=== PATIENT | male | born 1950 | race Caucasian/White ===

== ENCOUNTER → 2022-07-09 | Outpatient (CLI) | payer MEDICARE ==
--- NOTE | 2022-07-09 15:18 | MR ---
MRI CERVICAL SPINE: CLINICAL HISTORY: Neck pain that radiates down arms to hands. Spinal stenosis. TECHNIQUE: Multiplanar, multisequence imaging of the cervical spine is performed without IV contrast. COMPARISON: None. FINDINGS: Sagittal images of the cervical spine show the craniocervical junction to appear within nor mal limits. The cervical and upper thoracic spinal cord is normal in caliber and signal. Slight grad e 1 retrolisthesis C6 on C7 and grade 1 anterolisthesis C7 on T1. The vertebral body heights are nor mal. Mild to moderate disc space narrowing C5-C6 and C6-C7 levels with Modic type II endplate changes Axial images at C2-C3 level shows left-sided uncovertebral facet degenerative change causing moderate left-sided neural foraminal narrowing. Axial images at C3-C4 level shows broad-based left disc protrusion effacing the anterolateral thecal sac with some uncovertebral facet degenerative changes, there is mild left and more moderate right-si ded neural foraminal narrowing. Axial images at C4-C5 level shows uncovertebral facet degenerative changes bilaterally. There is tiny central disc protrusion seen. There is [id number] bilateral neural foraminal narrowing. There is effacement of the anterior thecal sac. Axial images at C5-C6 level shows broad-based disc protrusion along with central disc protrusion comp onent. There is some effacement of the anterior thecal sac. There is mild left and more severe right- sided neural foraminal narrowing. Axial images at C6-C7 level show posterior spur disc complex effacing anterior thecal sac and causing advanced bilateral neural foraminal narrowing. Axial images at C7-T1 level shows spondylosis and uncovertebral facet degenerative change causing mil d bilateral neural foraminal narrowing. IMPRESSION: Multilevel spondylolisthesis and degenerative change in the cervical spine as detailed ab ove.
== END | disposition home or self-care (01) ==
LOC: RADMRIMAIN 12:11
PROVIDERS: ATTEND Internal Medicine
DX: M43.12 Spondylolisthesis, cervical region (principal); M47.22 Other spondylosis with radiculopathy, cervical region; M48.02 Spinal stenosis, cervical region
CPT/HCPCS: 72141

== ENCOUNTER 2022-08-10 10:32 | Day surgery (SDC) | payer MEDICARE ==
[~2022-08-10 10:32] MED LIST: LACTATED RINGERS 1,000 ML IV SCH
[2022-08-10 11:21] VITALS: RESP 16; TEMP 97
[2022-08-10] MEDS ORDERED: PROPOFOL 10 MG/ML 20 ML VIAL IV ONE (11:58)
[2022-08-10] MEDS ORDERED: LIDOCAINE 2% INJ 20 MG/ML (2 ML VIAL) ONE (11:58)
--- NOTE | 2022-08-10 12:12 | P.PCN ---
Date of Procedure: 08/10/22 Procedure(s) Performed: BRIEF HISTORY: Patient is a 71-year-old, pleasant, white male scheduled for an upper endoscopy as a part of evaluation of progressive dysphagia to solids for the last 1 year duration and weight loss of 40 pounds. He has history of esophageal achalasia diagnosed in the and is status post Heller's myotomy. For the ones last 1 year his been having dysphagia to liquids and solids.. PROCEDURE PERFORMED: Esophagogastroduodenoscopy. PREOPERATIVE DIAGNOSIS: Progressive dysphagia to solids for the last 1 year duration, history of esophageal achalasia . IV sedation per anesthesia. PROCEDURE: After informed consent was obtained, the patient was brought into the endoscopy unit. IV sedation was administered by Anesthesia under continuous monitoring. Initially the Olympus GIF-140 video endoscope was inserted into the mouth. Esophagus intubated without any difficulty. It was gradually advanced into the stomach and duodenum and carefully examined. The bulb and the second part of the duodenum appeared normal. The scope at this time was withdrawn to the stomach, adequately insufflated with air, and upon careful examination, mucosa of the antrum, body, cardia and the fundus appeared normal. The scope was then withdrawn into the esophagus. The GE junction was located at 39 cm from the incisors. Linear erosions noted in the distal esophagus consistent with LA grade B reflux esophagitis. The entire length of esophagus appeared dilated with retained liquid and solid. There was no esophageal stricture noted. The patient tolerated the procedure well. IMPRESSION: 1. Dilated esophagus with retained fluid but no evidence of esophageal stricture 2. Linear erosions in the distal esophagus consistent with LA grade B reflux esophagitis. RECOMMENDATIONS: The findings of this examination were discussed with the patient as well as his family. He'll be started on omeprazole 20 mg twice daily and was briefly treated about antireflux measures. He'll be seen in office in 6 weeks.
[2022-08-10 12:27] VITALS: BP 122/69; PULSE 70
== END 2022-08-10 12:54 | disposition home or self-care (01) ==
LOC: ORWHC2ENDO 10:32
PROVIDERS: ATTEND Internal Medicine Gastroenterology
DX: K22.0 Achalasia of cardia (principal); K22.89 Other specified disease of esophagus; K21.00 Gastro-esophageal reflux disease with esophagitis, without bleeding; G20 Parkinson's disease; M19.90 Unspecified osteoarthritis, unspecified site; Z88.2 Allergy status to sulfonamides; Z79.899 Other long term (current) drug therapy
CPT/HCPCS: 43235; J2704; J2001